=== PATIENT | male | born 1965 | race Caucasian/White ===

== ENCOUNTER 2024-05-21 14:53 | Emergency (ER) | payer OTHER, SELFPAY ==
[2024-05-21 14:56] VITALS: BP 134/85
--- NOTE | 2024-05-21 15:37 | ED.GENMED ---
History of Present Illness
General
Chief Complaint: Suicidal Ideation
Source: patient and other (Corrections officers )
Time Seen by Provider: 05/21/24 15:31
History of Present Illness
History of Present Illness:
59-year-old male with past medical history of GERD presenting to the emergency department for evaluation from [facility] after he was witnessed attempting to place a towel around his neck but prior to attempting any suicide attempt
corrections officers intervened and were able to remove the towel. They report that at no time patient was choking or had any airway compromise. On arrival to the ER patient states that he attempted this because he has been unable to sleep for the
last month and is requesting either Klonopin or Xanax to help him sleep. Patient has no other physical complaints at this time including sore throat, difficulty breathing, chest pain or any other concerns.
Past History
Past History
ED Past Medical History: GERD
ED Past Surgical History: Orthopedic and Other (Hernia repair)
Social History
Tobacco: Non-smoker
Alcohol: None
Drug: None
Living: skilled nursing
Review of Systems
Review of Systems
All Other Systems: ROS reviewed and negative except as documented in HPI and ROS
Phy Exam
Physical Exam
Physical Exam:
GENERAL: Alert , in no apparent distress
EYE: conjunctiva clear
NECK: Supple, no significant adenopathy. No skin changes/erythema/ecchymosis. Full range of motion without pain
ENT: o/p clr, mmm. Uvula midline, airway patent, no stridor
CARDIAC: Regular rate and rhythm
LUNGS: Clear breath sounds bilaterally, no acute respiratory distress, no wheezes/rales/rhonchi
NEUROLOGICAL: Alert and oriented
SKIN: Warm and dry, skin intact.
MUSCULOSKELETAL: well perfused.
PSYCH: Normal and appropriate interaction.
Scores
Heart Failure Risk
Heart Failure Risk Score: Not Applicable
Heart Score for Chest Pain Patients
STEMI patient?: Not applicable
Withdrawal Assessment of Alcohol
Withdrawal Assessment Completed?: Not applicable
Course
Vital Signs
Initial and Last Documented VS:
Initial Vital Signs
Temp Pulse Resp BP Pulse Ox
98.0 F 64 20 134/85 97
05/21/24 14:56 05/21/24 14:56 05/21/24 14:56 05/21/24 14:56 05/21/24 14:56
Last Documented Vital Signs
Temp Pulse Resp BP Pulse Ox
98.0 F 64 20 134/85 97
05/21/24 14:56 05/21/24 14:56 05/21/24 14:56 05/21/24 14:56 05/21/24 14:56
Coil Inspector consulted with Physician
Coil Inspector consulted with physician?: Yes
Name of Physician Consulted: Rosio
MDM/Problems Addressed
Differential Diagnosis Includes:
Suicidal ideation, adjustment disorder, I do not have concern for any neck vasculature pathologies/emergencies
MDM/Problems Addressed:
59-year-old male presenting to the emergency department for evaluation after reportedly being found attempting to wrap a towel around his neck and reported suicide attempt. Patient is continuously requesting benzodiazepines to help him's. He has
no physical concerns at this time and otherwise does not appear to have any respiratory issues presently. I did consider CTA of the neck to evaluate however there is no external signs of trauma as well as corrections officers note patient at no
point was strangling himself or hanging. Patient is medically cleared for disposition back to [facility] where they can continue any further psychiatric care as they deem necessary.
*Pulse Oximetry
Patient hypoxic: no
*Critical Care Note
Total Time (30-74mins, 75-104mins- exclusive of procedures): Not Applicable
ED Attending Note
-
Portions of this chart may have been created with voice recognition software.� Occasional wrong word or��sound alike� substitutions may have occurred due to the inherent limitations of voice recognition software.
Discharge Plan
Departure
Patient Disposition: Residential
Date of Disposition: 05/21/24
Time of Disposition: 15:37
Patient with high blood pressure during this ER visit?: No
Discharge Problem:
Suicidal ideations
Referrals:
[place] [facility] [Family Provider] -
Activity Restrictions/Additional Instructions:
Patient is medically cleared for incarceration
Interventions
Interventions:
*Risk Screen - Suicide Last Done: 05/21/24 14:56
*General Assessment Last Done: 05/21/24 14:56
*Neglect/Abuse Screening Last Done: 05/21/24 14:56
*ED COVID-19 Vaccine History Last Done: 05/21/24 15:37
*Nursing Disposition Last Done: 05/21/24 15:47
ED-Psychological Assessment Last Done: 05/21/24 15:37
Discharge Date and Time
Discharge Date/Time: 05/21/24 15:48
Print Language: SERBIAN
== END 2024-05-21 15:48 ==
LOC: EMR 14:53
PROVIDERS: EMERGENCY PHYSICIAN Student in an Organized Health Care Education/Training Program
DX: R45.851 Suicidal ideations (principal); K21.9 Gastro-esophageal reflux disease without esophagitis
CPT/HCPCS: 99282

== ENCOUNTER 2024-05-22 19:09 | Emergency (ER) | payer OTHER, SELFPAY ==
[2024-05-22 19:15] VITALS: BP 158/89; BMI 17.1
[2024-05-22 20:18] VITALS: BP 139/84
--- NOTE | 2024-05-22 20:19 | ED.GENMED ---
History of Present Illness
General
Chief Complaint: Musculo-Skeletal Complaint
Source: patient and other (Corrections officers)
Time Seen by Provider: 05/22/24 20:06
History of Present Illness
History of Present Illness:
59-year-old male presenting emergency department for evaluation after corrections officers found the patient in his cell wrapping a piece of string around his neck, staff at retirement sent patient to the ER to be medically cleared. Patient denying any
symptoms and is only stating he would like Klonopin or Xanax for his anxiety. Patient was not prescribed this and was buying these off the street and has not had this medication in at least 5 days. He is also requesting something for sleep as well
as a nicotine patch. Patient without any difficulty breathing, swallowing or any other concerns. Of note patient was seen in this ER yesterday for the same by myself. Corrections officers noting that patient has a bite wound to his right upper
arm which patient admits to biting his own skin.
Past History
Past History
ED Past Medical History: GERD
ED Past Surgical History: Orthopedic and Other (Hernia repair)
Social History
Tobacco: Non-smoker
Alcohol: None
Drug: None
Living: [facility]
Review of Systems
Review of Systems
All Other Systems: ROS reviewed and negative except as documented in HPI and ROS
Phy Exam
Physical Exam
Physical Exam:
GENERAL: Alert , in no apparent distress
EYE: conjunctiva clear
NECK: Supple, very faint less than 2 mm erythematous line along the lateral aspect of patient's neck but without any overlying ecchymosis or break in the skin
ENT: o/p clr, mmm. No trismus or stridor
CARDIAC: Regular rate and rhythm
LUNGS: Clear breath sounds bilaterally, no acute respiratory distress, no wheezes/rales/rhonchi
NEUROLOGICAL: Alert and oriented
SKIN: Warm and dry, bite lucia to the right upper humeral region without any surrounding cellulitic changes
MUSCULOSKELETAL: well perfused.
PSYCH: Normal and appropriate interaction.
Scores
Heart Failure Risk
Heart Failure Risk Score: Not Applicable
Heart Score for Chest Pain Patients
STEMI patient?: Not applicable
Withdrawal Assessment of Alcohol
Withdrawal Assessment Completed?: Not applicable
Course
Vital Signs
Initial and Last Documented VS:
Initial Vital Signs
Temp Pulse Resp BP Pulse Ox
98.6 F 64 14 158/89 100
05/22/24 19:15 05/22/24 19:15 05/22/24 19:15 05/22/24 19:15 05/22/24 19:15
Last Documented Vital Signs
Temp Pulse Resp BP Pulse Ox
98.6 F 84 14 139/84 99
05/22/24 19:15 05/22/24 20:18 05/22/24 19:15 05/22/24 20:18 05/22/24 20:18
Employee Communications Coordinator consulted with Physician
Employee Communications Coordinator consulted with physician?: Yes
Name of Physician Consulted: Rosio
MDM/Problems Addressed
MDM/Problems Addressed:
59-year-old male presenting back to the emergency department after being seen yesterday where he attempted to wrap a towel around his neck but corrections officers intervened, today with the same with corrections officers believing patient took
string off of his mattress or clothing. There is a very faint erythematous line on the bilateral sides of his neck however there is no ecchymosis and it would be unlikely that a small piece of string would be able to cause any significant vascular
pathology. Patient without any difficulty breathing or swallowing. He tolerated liquids here without any difficulty. Patient continuously request either Xanax or Klonopin however patient in no emergent need of this medication. He is continue
asking for something to sleep. Will provide with 25 mg of p.o. Benadryl prior to discharge. Patient is otherwise medically stable for incarceration.
*Pulse Oximetry
Patient hypoxic: no
*Critical Care Note
Total Time (30-74mins, 75-104mins- exclusive of procedures): Not Applicable
Data Reviewed
Review of Other/Old Records Reveals: Records
ED Attending Note
-
Portions of this chart may have been created with voice recognition software.� Occasional wrong word or��sound alike� substitutions may have occurred due to the inherent limitations of voice recognition software.
Discharge Plan
Departure
Patient Disposition: Home (Routine Discharge)
Date of Disposition: 05/22/24
Time of Disposition: 20:20
Patient with high blood pressure during this ER visit?: No
Discharge Problem:
Suicide ideation
Referrals:
[place] [Family Provider] -
Activity Restrictions/Additional Instructions:
Patient is medically stable for incarceration
Interventions
Interventions:
*General Assessment Last Done: 05/22/24 19:15
*Neglect/Abuse Screening Last Done: 05/22/24 19:15
*ED COVID-19 Vaccine History Last Done: 05/22/24 19:15
ED-Musculoskeletal Assessment Last Done: 05/22/24 19:15
Discharge Date and Time
Print Language: NEPALI
[2024-05-22] MEDS: BENADRYL 25 MG PO (20:23)
== END 2024-05-22 20:27 ==
LOC: EMR 19:09
PROVIDERS: EMERGENCY PHYSICIAN Student in an Organized Health Care Education/Training Program
DX: R45.851 Suicidal ideations (principal); T14.91XA Suicide attempt, initial encounter; S41.151A Open bite of right upper arm, initial encounter; L53.9 Erythematous condition, unspecified; X83.8XXA Intentional self-harm by other specified means, initial encounter; Y33.XXXA Other specified events, undetermined intent, initial encounter; K21.9 Gastro-esophageal reflux disease without esophagitis; F41.9 Anxiety disorder, unspecified
CPT/HCPCS: 99284